=== PATIENT | male | born 1990 | race African-American/Black ===

== ENCOUNTER 2018-01-22 22:57 | Emergency (ER) | payer OTHER ==
[~2018-01-22] VITALS: Ht 182.9 cm; Wt 81.3 kg
[~2018-01-22 22:57] MED LIST: BACT800T5 PO; CLIN150C14 PO; CLIN300C5 PO; ESCI10TA PO; IBUP-232 PO; NAPR-803 PO; TRAZ100T4 PO
[2018-01-22 23:12] VITALS: BP 125/59; PULSE 100; RESP 18; TEMP 100.8; O2SAT 97
--- NOTE | 2018-01-23 01:00 | RADRPT ---
EXAM DATE/TIME: 01/23/2018 00:40 [facility] COMPARISON: CHEST SINGLE AP, August 05, 2016, 15:40. INDICATIONS : Chest pain. MEDICAL HISTORY : None. SURGICAL HISTORY : None. ENCOUNTER: Initial ACUITY: 1 day PAIN SCORE: 4/10 LOCATION: Bilateral chest FINDINGS: A single view of the chest demonstrates the lungs to be symmetrically aerated without evidence of mas s, infiltrate or effusion. The cardiomediastinal contours are unremarkable. Osseous structures are intact. CONCLUSION: No acute disease. Adebayo Dejesus MD on January 23, 2018 at 0:56 Board Certified Radiologist. This report was verified electronically.
[2018-01-23 01:08] VITALS: RESP 18
--- NOTE | 2018-01-23 01:21 | PD ---
HPI Chief Complaint: Medical Clearance Time Seen by Provider: 00:32 Travel History International Travel<30 days: No Contact w/Intl Traveler<30days: No Traveled to known affect area: No History of Present Illness HPI The patient is a 27 year old male who presents to the [facility] emergency department with a history of blood on the toilet paper after wiping with a bowel movement that occurred for the first time today. It was after a hard stool. He is unsure whether there was blood in the stool as he flushed prior to wiping again. He denies any rectal pain or swelling. Incidentally, he also reports that he then developed chest pain at 8 PM. He reports that he had associated midepigastric abdominal pain. He is unsure whether this was related to feeling anxious from seeing the blood. He does have a history of anxiety disorder. He denies having any nausea or vomiting. He denies having any diarrhea. He denies having any shortness of breath. He denies having any known recent fevers, however he has had cough and congestion for the last 4 days. He reports that his cough has been productive of yellow sputum. On review of systems otherwise, he denies having any neck pain, urinary symptoms, or neurologic symptoms. 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 FORMERLY [facility], [facility] Past Medical History Narrative Medical The patient's past medical history is significant for anxiety, depression, polysubstance abuse. Hx Anticoagulant Therapy: No ADHD: No Autoimmune Disease: No Bipolar Disorder: Yes Weight (Kg): 3 Anxiety: Yes Depression: Yes Cancer: No Cardiovascular Problems: No Chemotherapy: No Cerebrovascular Accident: No Diabetes: No Diminished Hearing: No Endocrine: No Gastrointestinal Disorders: No Genitourinary: No Headaches: No Immune Disorder: No Implanted Vascular Access Dvce: No Kidney Stones: No Musculoskeletal: Yes Neurologic: Yes Psychiatric: Yes Reproductive: No Respiratory: No Immunizations Current: Yes Migraines: No Renal Failure: No Seizures: No Thyroid Disease: No Ulcer: No Past Surgical History Surgical History: No Previous Surgery Section: No Cholecystectomy: No Other Surgery: No Social History Alcohol Use: Yes (SOCIALLY ) Tobacco Use: Yes (3/4 PPD ) Substance Use: Yes (MARIJUANA ) Allergies-Medications (Allergen,Severity, Reaction): Coded Allergies: No Known Allergies (Verified Allergy, Unknown, 01/23/18) Reported Meds & Prescriptions Reported Meds & Active Scripts Active No Active Prescriptions or Reported Medications Review of Systems Except as stated in HPI: all other systems reviewed are Neg General / Constitutional: No: Fever Eyes: No: Visual changes HENT: Positive: Congestion, No: Headaches Cardiovascular: Positive: Chest Pain or Discomfort, No: Dyspnea on exertion Respiratory: Positive: Cough, No: Shortness of Breath Gastrointestinal: Positive: Abdominal Pain, Hematochezia, No: Nausea, Vomiting , Diarrhea Genitourinary: No: Dysuria Musculoskeletal: No: Pain Skin: No Rash Neurologic: No: Weakness, Focal Abnormalities, Change in Mentation, Slurred Speech, Sensory Disturbance Psychiatric: No: Depression Endocrine: No: Polydipsia Hematologic/Lymphatic: No: Easy Bruising Physical Exam Narrative General: The patient is a well-developed well-nourished male in no acute distress. Head and Neck exam: Head is normocephalic atraumatic. Eyes: EOMI, pupils are equal round and reactive to light. Nose: Midline septum with pink mucous membranes Mouth: Dentition unremarkable. Moist mucus membranes. Posterior oropharynx is not erythematous. No tonsillar hypertrophy. Uvula midline. Airway patent. Neck: No palpable lymphadenopathy. No nuchal rigidity. No thyromegaly. Cardiovascular: Regular rate and rhythm without murmurs, gallops, or rubs. Lungs: Clear to auscultation bilaterally. No wheezes, rhonchi, or rales. Abdomen: Soft, with reported tenderness on palpation of the left upper quadrant of the abdomen, no other tenderness on palpation of the other quadrants of the abdomen. Normal bowel sounds are audible. No tenderness on palpation of McBurney's point. Negative Urbina sign. No guarding, rebound, or rigidity. Extremities: No clubbing, cyanosis, or edema. 2+ pulses in all 4 extremities. No calf tenderness on palpation. Back: No spinous process tenderness to palpation. No costovertebral angle tenderness to palpation. Neurologic Exam: Grossly nonfocal. Skin Exam: No rash noted. Intact skin that is warm and dry. RECTAL EXAM: No masses or tenderness, stool is brown. Hemoccult negative stool. No anal fissures or hemorrhoids noted Data Data Last Documented VS Vital Signs Date Time Temp Pulse Resp B/P (MAP) Pulse Ox O2 Delivery O2 Flow Rate FiO2 01/23/18 01:08 18 Room Air 01/22/18 23:12 100.8 100 125/59 (81) 97 Orders Orders Electrocardiogram (01/23/18 00:34) Complete Blood Count With Diff (01/23/18 00:34) Comprehensive Metabolic Panel (01/23/18 00:34) Creatine Kinase (Cpk) (01/23/18 00:34) Ckmb (Isoenzyme) Profile (01/23/18 00:34) Troponin I (01/23/18 00:34) Prothrombin Time / Inr (Pt) (01/23/18 00:34) Act Partial Throm Time (Ptt) (01/23/18:34) Lipase (01/23/18:34) Magnesium (Mg) (01/23/18 00:34) Chest, Single Ap (01/23/18 00:34) Iv Access Insert/Monitor (01/23/18 00:34) Ecg Monitoring (01/23/18 00:34) Oximetry (01/23/18 00:34) Type And Screen (01/23/18 00:34) Blood Culture (01/23/18 00:34) Westergren Sedimentation Rate (01/23/18 00:34) Lactic Acid Sepsis Protocol (01/23/18 00:34) Pantoprazole Inj (Protonix Inj) (01/23/18 01:45) Sodium Chlor 0.9% 1000 Ml Inj (Ns 1000 M (01/23/18 01:45) CKMB (01/23/18 00:55) CKMB% (01/23/18 00:55) Labs Laboratory Tests Test 01/23/18 00:55 White Blood Count 8.1 TH/MM3 Red Blood Count 3.89 MIL/MM3 Hemoglobin 11.9 GM/DL Hematocrit 34.4 % Mean Corpuscular Volume 88.4 FL Mean Corpuscular Hemoglobin 30.6 PG Mean Corpuscular Hemoglobin Concent 34.6 % Red Cell Distribution Width 14.4 % Platelet Count 168 TH/MM3 Mean Platelet Volume 9.4 FL Neutrophils (%) (Auto) 76.4 % Lymphocytes (%) (Auto) 11.9 % Monocytes (%) (Auto) 8.6 % Eosinophils (%) (Auto) 2.8 % Basophils (%) (Auto) 0.3 % Neutrophils # (Auto) 6.2 TH/MM3 Lymphocytes # (Auto) 1.0 TH/MM3 Monocytes # (Auto) 0.7 TH/MM3 Eosinophils # (Auto) 0.2 TH/MM3 Basophils # (Auto) 0.0 TH/MM3 CBC Comment DIFF FINAL Differential Comment Erythrocyte Sedimentation Rate 35 mm/hr Prothrombin Time 11.2 SEC Prothromb Time International Ratio 1.1 RATIO Activated Partial Thromboplast Time 28.2 SEC Blood Urea Nitrogen 11 MG/DL Creatinine 0.93 MG/DL Random Glucose 106 MG/DL Total Protein 7.3 GM/DL Albumin 3.3 GM/DL Calcium Level 8.6 MG/DL Magnesium Level 1.7 MG/DL Alkaline Phosphatase 107 U/L Aspartate Amino Transf (AST/SGOT) 24 U/L Alanine Aminotransferase (ALT/SGPT) 39 U/L Total Bilirubin 0.5 MG/DL Sodium Level 138 MEQ/L Potassium Level 3.8 MEQ/L Chloride Level 102 MEQ/L Carbon Dioxide Level 27.9 MEQ/L Anion Gap 8 MEQ/L Estimat Glomerular Filtration Rate 120 ML/MIN Lactic Acid Level 0.6 mmol/L Total Creatine Kinase 272 U/L Creatine Kinase MB 0.8 NG/ML Troponin I LESS THAN 0.02 NG/ML Lipase 77 U/L MDM Medical Decision Making Medical Screen Exam Complete: Yes Emergency Medical Condition: Yes Medical Record Reviewed: Yes Interpretation(s) Last Impressions Chest X-Ray 01/23/18 0034 Signed Impressions: Service Date/Time: Tuesday, January 23, 2018 00:40 - CONCLUSION: No acute disease. Adebayo Dejesus MD Differential Diagnosis Anal fissure, versus internal hemorrhoid, versus external hemorrhoid, versus AVM malformation, versus colitis, versus proctitis, versus peptic ulcer, versus acid refill Narrative Course During the course of the patient's emergency department visit, the patient's history, examination, and differential diagnosis were reviewed with the patient. The patient was placed on a cardiac monitor technician with oximetry and frequent blood pressure monitoring. The patient had IV access obtained and blood work sent for analysis. The patient had an EKG done on arrival. The patient's EKG reveals a sinus rhythm heart rate of 98, QRS duration 85 ms, QTC 360 ms without any acute ST segment elevation. T waves are inverted in V1. The patient was initially provided Protonix 40 mg IV, normal saline 1 L IV fluid bolus. The patient's laboratory studies were reviewed and remarkable for a white count of 8.1, hemoglobin 11.9, platelets 168, neutrophils 76.4, monocytes 8.6, sedimentation rate is 35, PT PTT within normal limits. Radiology studies were reviewed and remarkable for a chest x-ray that shows no acute abnormality. Given the patient's reported productive cough and congestion, the patient will be treated with antibiotic. The patient was given Zithromax 500 p.o. 1. The patient will be continued on a Z-Fidel. Regarding the patient's blood on the toilet paper with wiping, I recommended that he follow-up with the section weaver if the symptoms continue. The patient is given information regarding the [facility] for follow-up for general primary care. He is instructed to follow-up in 2 days for reexamination. The patient is resting comfortably and feels better, is alert and in no distress. The patient's results and examination findings were discussed with the patient. The repeat examination is unremarkable and benign. The history, exam, diagnostic testing, and current condition do not suggest any significant pathology to warrant further testing, continued ED treatment, admission, or surgical evaluation at this point. The vital signs have been stable. The patient does not have uncontrollable pain, intractable vomiting, or other significant symptoms. The patient's condition is stable and appropriate for discharge. The patient will pursue further outpatient evaluation with a primary care physician or other designated or consulting physician as indicated in the discharge instructions. The patient expressed understanding and was agreeable with this plan. [facility] Point of Care Internal Pos. & Neg. Controls: Passed Fecal Specimen Occult Blood: Negative Diagnosis Primary Impression: Bronchitis Additional Impression: Bright red blood per rectum Referrals: [facility] 2 days Patient Instructions: Acute Bronchitis (ED), General Instructions Departure Forms: Tests/Procedures Med/Other Pt SpecificInfo: Prescription(s) given Scripts Ranitidine (Ranitidine) 150 Mg Tab 150 MG PO BID for Heartburn Management, #30 TAB 0 Refills Prov: Rosie Dumont MD 01/23/18 Azithromycin (Zithromax) 250 Mg Tab 250 MG PO DAILY for Infection for 4 Days, #4 TAB 0 Refills Prov: Rosie Dumont MD 01/23/18 Disposition: DISCHARGE HOME Condition: Stable Rosie Dumont MD Jan 23, 2018 01:21
[2018-01-23 01:24] LABS: INTERNATIONAL NORMALIZED RATIO 1.1 RATIO; PROTHROMBIN TIME - PATIENT 11.2 SEC (9.8-11.6)
[2018-01-23 01:25] LABS: AUTOMATED NEUTROPHIL # 6.2 TH/MM3 (1.8-7.7); BASOPHIL % 0.3 % (0.0-2.0); EOSINOPHIL # 0.2 TH/MM3 (0-0.4); EOSINOPHIL % 2.8 % (0.0-4.0); HEMATOCRIT 34.4 % (39.0-51.0); HEMOGLOBIN 11.9 GM/DL (13.0-17.0); LYMPH % 11.9 % (9.0-44.0); MEAN CELL VOLUME 88.4 FL (80.0-100.0); MEAN CORPUSCULAR HEMOGLOBIN 30.6 PG (27.0-34.0); MEAN CORPUSCULAR HGB CONC 34.6 % (32.0-36.0); MEAN PLATELET VOLUME 9.4 FL (7.0-11.0); MONO % 8.6 % (0.0-8.0); MONOCYTE # 0.7 TH/MM3 (0-0.9); NEUT % 76.4 % (16.0-70.0); PLATELET COUNT 168 TH/MM3 (150-450); RED BLOOD COUNT 3.89 MIL/MM3 (4.50-5.90); RED CELL DISTRIBUTION WIDTH 14.4 % (11.6-17.2); WHITE BLOOD COUNT 8.1 TH/MM3 (4.0-11.0)
[2018-01-23 01:41] LABS: ALBUMIN 3.3 GM/DL (3.4-5.0); ALT (GPT) 39 U/L (12-78); AST (GOT) 24 U/L (15-37); BICARBONATE 27.9 MEQ/L (21.0-32.0); BLOOD UREA NITROGEN 11 MG/DL (7-18); CALCIUM 8.6 MG/DL (8.5-10.1); CHLORIDE 102 MEQ/L (98-107); CREATININE 0.93 MG/DL (0.60-1.30); GLOMERULAR FILTRATION RATE 120 ML/MIN (>89); GLUCOSE,RANDOM 106 MG/DL (74-106); MAGNESIUM 1.7 MG/DL (1.5-2.5); SODIUM (NA) 138 MEQ/L (136-145)
[2018-01-23] MEDS ORDERED: PANTOPRAZOLE SODIUM 40 MG VIAL IV PUSH ONE (01:45)
[2018-01-23] MEDS ORDERED: SODIUM CHLOR 0.9% 1000 ML INJ 1,000 ML IV ONE (01:45)
[2018-01-23 01:46] LABS: ALKALINE PHOSPHATASE 107 U/L (45-117); TOTAL BILIRUBIN ADULT 0.5 MG/DL (0.2-1.0); TOTAL PROTEIN 7.3 GM/DL (6.4-8.2); TROPONIN I LESS THAN 0.02 NG/ML (0.02-0.05)
[2018-01-23] MEDS ORDERED: RANI150T PO (02:45)
[2018-01-23] MEDS ORDERED: AZITHROMYCIN 250 MG TAB PO ONE (02:45)
[2018-01-23] MEDS ORDERED: ZITH250T PO (02:45)
--- NOTE | 2018-01-23 16:41 | EKG ---
Date Performed: 01/23/2018 Time Performed: 00:59:09 PTAGE: 27 years EKG: Sinus rhythm Since previous tracing, no significant change noted NORMAL ECG PREVIOUS TRACING : 08/05/2016 20.21 DOCTOR: Jj He Interpretating Date/Time 01/23/2018 16:39:51
== END 2018-01-23 03:10 | disposition home or self-care (01) ==
LOC: NEPE 22:57
DX: J40 Bronchitis, not specified as acute or chronic (principal); K62.5 Hemorrhage of anus and rectum; F12.90 Cannabis use, unspecified, uncomplicated; F17.200 Nicotine dependence, unspecified, uncomplicated
CPT/HCPCS: 71045; 80053; 82550; 82552; 83605; 83690; 83735; 84484; 85025; 85610; 85652; 85730; 86850; 86900; 86901; 87040; 93005; 96361; 96374; 99285; C9113; J7030

== ENCOUNTER 2018-01-26 16:20 | Emergency (ER) | payer OTHER ==
[~2018-01-26] VITALS: Ht 182.9 cm; Wt 81.8 kg
[~2018-01-26 16:20] MED LIST changes: -BACT800T5 PO; -CLIN150C14 PO; -CLIN300C5 PO; -ESCI10TA PO; -IBUP-232 PO; -NAPR-803 PO; +RANI150T PO; -TRAZ100T4 PO; +ZITH250T PO
[2018-01-26 16:26] VITALS: BP 136/83; PULSE 102; RESP 18; TEMP 98.1; O2SAT 97
--- NOTE | 2018-01-26 20:46 | PD ---
HPI Chief Complaint: Chest Pain Time Seen by Provider: 19:39 Travel History International Travel<30 days: No Contact w/Intl Traveler<30days: No Traveled to known affect area: No History of Present Illness HPI 27-year-old male came to the emergency room with history of multiple complaints. In triage he mentioned about chest pain but to me his main complaint was vomiting and hematochezia. Patient was in the emergency room 3 days ago with similar complaints. Extensive blood test were done and patient was discharged home on Zithromax and ranitidine. Patient says he has been taking the medication but he is not feeling any better. His symptoms have not subsided. Vital signs are stable. Patient does not look to be in any distress. He is here with his girlfriend I believe with multiple luggage. Patient also complains of generalized abdominal pain. All the symptoms have been going on for over 3 days now. Patient does not have a primary care physician and has not followed up with anybody else. PFSH Past Medical History Narrative Medical List of his past medical, surgical, social and family history is reviewed from the nursing note. Hx Anticoagulant Therapy: No ADHD: No Autoimmune Disease: No Bipolar Disorder: Yes Weight (Kg): 3 Anxiety: Yes Depression: Yes Cancer: No Cardiovascular Problems: No Chemotherapy: No Cerebrovascular Accident: No Diabetes: No Diminished Hearing: No Endocrine: No Gastrointestinal Disorders: No Genitourinary: No Headaches: No Immune Disorder: No Implanted Vascular Access Dvce: No Kidney Stones: No Musculoskeletal: Yes Neurologic: Yes Psychiatric: Yes Reproductive: No Respiratory: No Immunizations Current: Yes Migraines: No Renal Failure: No Seizures: No Thyroid Disease: No Ulcer: No Past Surgical History Section: No Cholecystectomy: No Other Surgery: No Social History Alcohol Use: Yes (SOCIALLY ) Tobacco Use: Yes (/ PPD ) Substance Use: Yes (MARIJUANA ) Allergies-Medications (Allergen,Severity, Reaction): Coded Allergies: No Known Allergies (Verified Allergy, Unknown, 01/26/18) Comments No known drug allergies. Reported Meds & Prescriptions Reported Meds & Active Scripts Active Zofran Odt (Ondansetron Odt) 4 Mg Tab 4 Mg SL Q6HR PRN Ranitidine (Ranitidine HCl) 150 Mg Tab 150 Mg PO BID Zithromax (Azithromycin) 250 Mg Tab 250 Mg PO DAILY 4 Days Narrative Medication List of his home medications reviewed from the nursing note. Review of Systems Except as stated in HPI: all other systems reviewed are Neg Gastrointestinal: Positive: Vomiting, Abdominal Pain, Hematochezia Physical Exam Narrative GENERAL: Awake, alert, no obvious distress SKIN: Focused skin assessment warm/dry. HEAD: Atraumatic. Normocephalic. EYES: Pupils equal and round. No scleral icterus. No injection or drainage. ENT: No nasal bleeding or discharge. Mucous membranes pink and moist. NECK: Trachea midline. No JVD. CARDIOVASCULAR: Regular rate and rhythm. No murmur appreciated. RESPIRATORY: No accessory muscle use. Clear to auscultation. Breath sounds equal bilaterally. GASTROINTESTINAL: Abdomen soft, non-tender, nondistended. Hepatic and splenic margins not palpable. MUSCULOSKELETAL: No obvious deformities. No clubbing. No cyanosis. No edema. NEUROLOGICAL: Awake and alert. No obvious cranial nerve deficits. Motor grossly within normal limits. Normal speech. PSYCHIATRIC: Appropriate mood and affect; insight and judgment normal. Data Data Last Documented VS Vital Signs Date Time Temp Pulse Resp B/P (MAP) Pulse Ox O2 Delivery O2 Flow Rate FiO2 01/26/18 21:33 86 16 119/66 (83) 96 16 123/75 (91) 01/26/18 16:26 98.1 97 Orders Orders Electrocardiogram (01/26/18 ) Complete Blood Count With Diff (01/26/18 20:44) Comprehensive Metabolic Panel (01/26/18 20:44) Orthostatic Vital Signs (01/26/18 21:26) Ed Discharge Order (01/26/18 22:32) Labs Laboratory Tests Test 01/26/18 21:23 White Blood Count 7.4 TH/MM3 Red Blood Count 3.94 MIL/MM3 Hemoglobin 12.0 GM/DL Hematocrit 34.5 % Mean Corpuscular Volume 87.6 FL Mean Corpuscular Hemoglobin 30.4 PG Mean Corpuscular Hemoglobin Concent 34.7 % Red Cell Distribution Width 14.5 % Platelet Count 233 TH/MM3 Mean Platelet Volume 8.9 FL Neutrophils (%) (Auto) 64.2 % Lymphocytes (%) (Auto) 21.4 % Monocytes (%) (Auto) 10.0 % Eosinophils (%) (Auto) 3.7 % Basophils (%) (Auto) 0.7 % Neutrophils # (Auto) 4.7 TH/MM3 Lymphocytes # (Auto) 1.6 TH/MM3 Monocytes # (Auto) 0.7 TH/MM3 Eosinophils # (Auto) 0.3 TH/MM3 Basophils # (Auto) 0.0 TH/MM3 CBC Comment DIFF FINAL Differential Comment Blood Urea Nitrogen 10 MG/DL Creatinine 0.90 MG/DL Random Glucose 99 MG/DL Total Protein 7.1 GM/DL Albumin 3.2 GM/DL Calcium Level 8.5 MG/DL Alkaline Phosphatase 109 U/L Aspartate Amino Transf (AST/SGOT) 31 U/L Alanine Aminotransferase (ALT/SGPT) 33 U/L Total Bilirubin 0.3 MG/DL Sodium Level 139 MEQ/L Potassium Level 3.5 MEQ/L Chloride Level 104 MEQ/L Carbon Dioxide Level 27.8 MEQ/L Anion Gap 7 MEQ/L Estimat Glomerular Filtration Rate 125 ML/MIN MDM Medical Decision Making Medical Screen Exam Complete: Yes Emergency Medical Condition: Yes Medical Record Reviewed: Yes Differential Diagnosis Acute gastritis, hemorrhoids, GI bleed, malingering Narrative Course 9:25 PM awaiting for blood test result. Patient had a stool Hemoccult done 3 days ago when he was here with a similar complaint and stool Hemoccult was negative. Given normal hemodynamic status if the hemoglobin and hematocrit is normal patient will be discharged home again. 10:30 PM blood test results are back and within normal limits. He is hemoglobin and hematocrit is better than what it was 3 days ago. I am comfortable discharging him home. Procedures EKG Prior to Arrival: No Diagnosis Primary Impression: Vomiting Qualified Codes: R11.2 - Nausea with vomiting, unspecified Referrals: [facility] Additional Instructions: Return to the ER if the condition worsens any other new concerns. Take the medication as per the prescription direction. Follow-up with [facility] who is number and address has been given on this discharge paperwork. If your diarrhea continues then the stool should be checked which [facility] should be able to order as an outpatient. Med/Other Pt SpecificInfo: Prescription(s) given Scripts Ondansetron Odt (Zofran Odt) 4 Mg Tab 4 MG SL Q6HR Y for Nausea/Vomiting, #15 TAB 0 Refills Prov: Liliana Tay MD 01/26/18 Disposition: 01 DISCHARGE HOME Condition: Stable Liliana Tay MD Jan 26, 2018 20:46
[2018-01-26 21:33] VITALS: BP_SYST 119; BP_SYST 123; BP_DIAS 66; BP_DIAS 75; RESP 16
[2018-01-26 21:36] LABS: AUTOMATED NEUTROPHIL # 4.7 TH/MM3 (1.8-7.7); BASOPHIL % 0.7 % (0.0-2.0); EOSINOPHIL # 0.3 TH/MM3 (0-0.4); EOSINOPHIL % 3.7 % (0.0-4.0); HEMATOCRIT 34.5 % (39.0-51.0); LYMPH % 21.4 % (9.0-44.0); LYMPHOCYTE # 1.6 TH/MM3 (1.0-4.8); MEAN CELL VOLUME 87.6 FL (80.0-100.0); MEAN CORPUSCULAR HEMOGLOBIN 30.4 PG (27.0-34.0); MEAN CORPUSCULAR HGB CONC 34.7 % (32.0-36.0); MEAN PLATELET VOLUME 8.9 FL (7.0-11.0); MONOCYTE # 0.7 TH/MM3 (0-0.9); NEUT % 64.2 % (16.0-70.0); PLATELET COUNT 233 TH/MM3 (150-450); RED BLOOD COUNT 3.94 MIL/MM3 (4.50-5.90); RED CELL DISTRIBUTION WIDTH 14.5 % (11.6-17.2); WHITE BLOOD COUNT 7.4 TH/MM3 (4.0-11.0)
[2018-01-26 22:08] LABS: ALBUMIN 3.2 GM/DL (3.4-5.0); AST (GOT) 31 U/L (15-37); BICARBONATE 27.8 MEQ/L (21.0-32.0); BLOOD UREA NITROGEN 10 MG/DL (7-18); CALCIUM 8.5 MG/DL (8.5-10.1); CHLORIDE 104 MEQ/L (98-107); GLOMERULAR FILTRATION RATE 125 ML/MIN (>89); GLUCOSE,RANDOM 99 MG/DL (74-106); SODIUM (NA) 139 MEQ/L (136-145)
[2018-01-26 22:09] LABS: ALT (GPT) 33 U/L (12-78)
[2018-01-26 22:11] LABS: ALKALINE PHOSPHATASE 109 U/L (45-117); TOTAL BILIRUBIN ADULT 0.3 MG/DL (0.2-1.0); TOTAL PROTEIN 7.1 GM/DL (6.4-8.2)
[2018-01-26] MEDS ORDERED: ZOFR4TAB3 SL (22:32)
--- NOTE | 2018-01-28 08:15 | EKG ---
Date Performed: 01/26/2018 Time Performed: 17:04:27 PTAGE: 27 years EKG: Sinus rhythm NORMAL ECG PREVIOUS TRACING : 01/23/2018 00.59 Since the previous tracing, no significant change noted DOCTOR: James Hinkle Interpretating Date/Time 01/28/2018 08:15:26
== END 2018-01-26 23:11 | disposition home or self-care (01) ==
LOC: NEPD 16:20
DX: R11.2 Nausea with vomiting, unspecified (principal); R10.84 Generalized abdominal pain; K92.1 Melena; F31.9 Bipolar disorder, unspecified; F41.9 Anxiety disorder, unspecified; F17.200 Nicotine dependence, unspecified, uncomplicated; Z79.899 Other long term (current) drug therapy
CPT/HCPCS: 80053; 85025; 93005; 99284